=== PATIENT | female | born 1940 | race Caucasian/White ===

== ENCOUNTER 2021-06-11 12:29 | Emergency (ER) | payer OTHER, MEDICAID ==
[~2021-06-11] VITALS: Ht 160 cm; Wt 94.8 kg
[~2021-06-11 12:29] MED LIST: AMLODIPINE BESYL5 MG PO; ASPIR 8181 MG PO; ATENOLOL/CHLORT1 TA1 PO; ATIVAN0.5 MG PO; ATORVASTATIN CA40 M1 PO; EMERGEN-C 1,01000 MG PO; K-DUR 1010 MEQ PO; LEVOTHYROXINE100 MC1 PO; LOSARTAN-HCTZ1 EAC2 PO; LOSARTAN-HCTZ1 EACH PO; METOPROLOL SUCC25 M2 PO; NORVASC10 MG PO; ONDANSETRON HYDR4 MG PO; PRILOSEC20 M1 PO; PROBIOTIC FORM1 EACH PO; SYNTHROID0.125 MG PO; VITAMIN D350 MCG PO
== END 2021-06-11 18:20 | disposition left against medical advice (07) ==
LOC: ED 12:29
DX: R50.9 Fever, unspecified (principal); R51.9 Headache, unspecified; R43.9 Unspecified disturbances of smell and taste; Z53.21 Procedure and treatment not carried out due to patient leaving prior to being seen by health care provider

== ENCOUNTER 2022-07-27 12:50 | Emergency (ER) | payer OTHER, MEDICAID ==
[~2022-07-27] VITALS: Ht 160 cm; Wt 103.4 kg
[2022-07-27 13:36] LABS: BASO % 0.5 % (0.0-1.0); EOS % 0.5 % (1.0-4.0); HEMATOCRIT 35.3 % (37.0-47.0); LYMPH # 1.3 10*3/uL (1.3-4.4); MEAN CELL VOLUME 99.4 fl (81.0-99.0); MEAN CORPUSCULAR HGB CONC 33.1 g/dl (33.0-37.0); MEAN PLATELET VOLUME 11.2 fl (9.6-12.3); MONO # 0.4 10*3/uL (0.1-1.0); MONO % 7.8 % (3.0-9.0); NEUT # 3.9 10*3/uL (2.3-7.9); PLATELET COUNT AUTOMATED 230 10*3/uL (130-400); RED BLOOD COUNT 3.55 10*6/uL (4.10-5.10); RED CELL DISTRI WIDTH 16.2 % (0-14.5); WHITE BLOOD COUNT 5.7 10*3/uL (4.8-10.8)
[2022-07-27 13:49] LABS: ACT PARTIAL THROMBO TIME 24.2 SECONDS (20.0-32.1)
[2022-07-27 13:52] LABS: CREATININE 1.26 mg/dL (0.55-1.02); POTASSIUM 3.8 mmol/L (3.4-5.1)
[2022-07-27 13:53] LABS: TOTAL PROTEIN 6.6 gm/dL (6.0-8.0)
== END 2022-07-27 16:55 | disposition home or self-care (01) ==
LOC: ED 12:50
PROVIDERS: Family Medicine
DX: R06.02 Shortness of breath (principal); Z20.822 Contact with and (suspected) exposure to COVID-19; Z88.8 Allergy status to other drugs, medicaments and biological substances; Z90.49 Acquired absence of other specified parts of digestive tract; Z98.51 Tubal ligation status; Z98.890 Other specified postprocedural states

== ENCOUNTER 2022-11-06 03:46 | Inpatient (IN) | payer OTHER, MEDICAID ==
[2022-11-06] VITALS (17 sets, daily range): BP systolic 105–173; BP diastolic 46–80
[~2022-11-06] VITALS: Ht 160 cm; Wt 96.3 kg
[2022-11-06 04:18] LABS: BASO % 0.6 % (0.0-1.0); EOS # 0.1 10*3/uL (0.0-0.4); EOS % 1.8 % (1.0-4.0); HEMATOCRIT 37.9 % (37.0-47.0); LYMPH # 1.7 10*3/uL (1.3-4.4); MEAN CELL VOLUME 103.6 fl (81.0-99.0); MEAN CORPUSCULAR HGB 33.9 pg (27.0-31.0); MEAN CORPUSCULAR HGB CONC 32.7 g/dl (33.0-37.0); MEAN PLATELET VOLUME 11.2 fl (9.6-12.3); MONO # 0.5 10*3/uL (0.1-1.0); MONO % 7.1 % (3.0-9.0); NEUT # 4.8 10*3/uL (2.3-7.9); NEUT % 66.2 % (47.0-73.0); PLATELET COUNT AUTOMATED 220 10*3/uL (130-400); RED BLOOD COUNT 3.66 10*6/uL (4.10-5.10); RED CELL DISTRI WIDTH 14.8 % (0-14.5); WHITE BLOOD COUNT 7.2 10*3/uL (4.8-10.8)
[2022-11-06 04:34] LABS: POTASSIUM 3.8 mmol/L (3.4-5.1); TOTAL PROTEIN 6.8 gm/dL (6.0-8.0)
[2022-11-06] MEDS ORDERED: LOSARTAN-HCTZ1 EAC1 PO (10:31)
[2022-11-07] VITALS (12 sets, daily range): BP systolic 95–134; BP diastolic 50–88
[2022-11-07 06:18] LABS: BASO % 0.6 % (0.0-1.0); EOS # 0.1 10*3/uL (0.0-0.4); EOS % 1.5 % (1.0-4.0); LYMPH # 1.9 10*3/uL (1.3-4.4); LYMPH % 28.5 % (27.0-41.0); MEAN CELL VOLUME 104.4 fl (81.0-99.0); MEAN CORPUSCULAR HGB 33.8 pg (27.0-31.0); MEAN CORPUSCULAR HGB CONC 32.4 g/dl (33.0-37.0); MEAN PLATELET VOLUME 11.6 fl (9.6-12.3); MONO # 0.6 10*3/uL (0.1-1.0); MONO % 8.8 % (3.0-9.0); NEUT % 60.3 % (47.0-73.0); PLATELET COUNT AUTOMATED 235 10*3/uL (130-400); RED BLOOD COUNT 3.64 10*6/uL (4.10-5.10); RED CELL DISTRI WIDTH 14.9 % (0-14.5); WHITE BLOOD COUNT 6.6 10*3/uL (4.8-10.8)
[2022-11-07 06:21] LABS: BUN 20 mg/dl (9-23); CHLORIDE 107 mmol/L (98-107); CHOLESTEROL 163 mg/dL (<200); FREE T4 1.33 ng/dl (0.89-1.76); LDL CHOLESTEROL 88 mg/dL (9-159); POTASSIUM 3.7 mmol/L (3.4-5.1); THYROID STIM HORMONE (HS) 2.641 uIU/ml (0.550-4.780); TRIGLYCERIDES 149 mg/dl (<150)
[2022-11-07 07:11] LABS: VITAMIN D, 25-HYDROXY 54.4 ng/mL (30-100)
[2022-11-07] MEDS ORDERED: LOPRESSOR25 MG PO (14:32)
[2022-11-08] VITALS: BP 127/80
[2022-11-08 02:00] VITALS: BP 110/60
[2022-11-08 04:00] VITALS: BP 106/58
== END 2022-11-08 05:42 | disposition short-term general hospital (02) | DRG 281 ==
LOC: ED 03:46 → EDHOLD 07:15 → 5E 07:15 → EDHOLD 07:16 → 5E 09:45
PROVIDERS: Internal Medicine; Registered Nurse; ADMIT Internal Medicine; ATTEND Internal Medicine
DX: I21.4 Non-ST elevation (NSTEMI) myocardial infarction (principal); N17.9 Acute kidney failure, unspecified; I12.9 Hypertensive chronic kidney disease with stage 1 through stage 4 chronic kidney disease, or unspecified chronic kidney disease; E83.42 Hypomagnesemia; D75.89 Other specified diseases of blood and blood-forming organs; E03.9 Hypothyroidism, unspecified; I48.0 Paroxysmal atrial fibrillation; I25.10 Atherosclerotic heart disease of native coronary artery without angina pectoris; N18.30 Chronic kidney disease, stage 3 unspecified; Z88.1 Allergy status to other antibiotic agents; Z88.8 Allergy status to other drugs, medicaments and biological substances; Z98.51 Tubal ligation status; Z90.49 Acquired absence of other specified parts of digestive tract; Z82.49 Family history of ischemic heart disease and other diseases of the circulatory system; I25.2 Old myocardial infarction

== ENCOUNTER → 2024-08-02 | Outpatient (CLI) | payer MEDICARE, MEDICAID ==
[~2024-08-02] MED LIST changes: +AMIODARONE HYD200 MG PO; +AMLODIPINE BESY10 MG PO; +ASPIRIN ADULT L81 M2 PO; +BIOTIN1000 MC1 PO; +CELECOXIB200 M1 PO; +IRON325 M1 PO; +JARDIANCE10 MG PO; +LASIX40 MG PO; +LEVOTHYROXINE100 MC2 PO; +LOPRESSOR25 MG PO; +LOSARTAN-HCTZ1 EAC1 PO; +METOPROLOL TART50 M1 PO; +OMEPRAZOLE MAGN20 MG PO; +VIBRAMYCIN100 MG PO; +VITAMIN B-12500 MC4 PO; +VITAMIN B650 M1 PO; +VITAMIN D325 MC1 PO; +VITAMIN E180 M1 PO; +XARE15TA PO; +XARE20MG PO
[2024-08-02 12:55] LABS: POTASSIUM 3.6 mmol/L (3.4-5.1)
== END | disposition home or self-care (01) ==
LOC: LAB 11:48
PROVIDERS: ATTEND Internal Medicine
DX: N17.0 Acute kidney failure with tubular necrosis (principal)